=== PATIENT | male | born 1970 | race Hispanic/Latino ===

== ENCOUNTER 2016-11-07 07:35 | Day surgery (SDC) | payer MEDICAID ==
[2016-10-28 09:37] VITALS: BMI 27.9
[2016-11-07] MEDS: Lidocaine 1% Inj (20ml) ONE ×2 (08:05→08:15)
[2016-11-07] MEDS: Bupivacaine-Epi 0.25%-1:200,000 PF Inj ONE ×2 (08:05→08:15)
[2016-11-07] MEDS ORDERED: Lactated Ringer's 1,000 ML IV ONE (08:15)
[2016-11-07] MEDS ORDERED: ceFAZolin IV 1 gm in Dextrose 1 GM/50 ML BAG IVPB ONE (08:21)
[2016-11-07 08:22] VITALS: PULSE 59
[2016-11-07] MEDS ORDERED: Oxycodone/Acetaminophen 5/325 mg Tab PO PRN (09:07)
--- NOTE | 2016-11-07 09:09 | PCM.SURG1 ---
Surgeon's Initial Post Op Note - Surgeon's Notes Surgeon: Dr. Duarte Paper Machine Tender: Dusty Giraldo PGY2 Type of Anesthesia: Local Pre-Operative Diagnosis: L UE sebaceous cyst Operative Findings: Same [id number] Post-Operative Diagnosis: Same Operation Performed: excision of L sebaceous cyst Specimen/Specimens Removed: L UE sebaceous cyst Estimated Blood Loss: EBL {In ML}: 5 Blood Products Given: N/A Drains Used: No Drains Post-Op Condition: Good Date of Surgery/Procedure: 11/07/16 Time of Surgery/Procedure: 09:09
--- NOTE | 2016-11-07 09:13 | CP.SDSHP ---
Same Day Surgery H & P - History Proposed Procedure: Excision of L UE cyst Pre-Op Diagnosis: L UE cyst - Allergies Allergies: Allergies No Known Allergies Allergy (Verified 10/28/16 09:35) - Physical Exam Vital Signs: Vital Signs 11/07/16 07:44 Temperature 97.1 F L Pulse Rate 59 L Respiratory 20 Rate Blood Pressure 168/53 H O2 Sat by Pulse 97 Oximetry Mental Status: Alert & Oriented x3 Neuro: WNL Heart: WNL Lungs: WNL GI: WNL - {Optional Preform as Required} Abdomen: WNL Integument: Other (L UE 3x3cm lump. NT. No eryhtema) Short Stay Discharge - Short Stay Discharge Admitting Diagnosis/Reason for Visit: SEBACEOUS CYST LEFT ARM Disposition: HOME/ ROUTINE Referrals: Pavel Duarte MD [Staff Provider] - Instructions: Dermal Cyst Excision (DC)
[2016-11-07 09:26] VITALS: BP 159/79; RESP 15; TEMP 97; O2SAT 100
--- NOTE | 2016-11-07 11:19 | OP ---
PROCEDURE DATE: 11/07/2016 PREOPERATIVE DIAGNOSIS: Sebaceous cyst of left forearm, approximately 4 x 3 cm size. POSTOPERATIVE DIAGNOSIS: Sebaceous cyst of left forearm, approximately 4 x 3 cm size. PROCEDURE DONE: Excision of sebaceous cyst of the left forearm. SURGEON: Pavel Duarte MD MANAGER NURSING HOME: [facility] resident. TYPE OF ANESTHESIA: Local anesthesia plus monitored anesthesia. ESTIMATED BLOOD LOSS: Around 10 mL DRAINS: None. PATHOLOGY: The sebaceous cyst was sent to the pathology. COMPLICATIONS: None. INTRAOPERATIVE FINDINGS: The patient has approximately 4 x 3 cm sebaceous cyst of the left forearm posteriorly. DESCRIPTION OF PROCEDURE: On intraoperative steps, this is a 46-year-old male who was diagnosed with the sebaceous cyst of the left forearm and the patient was consented about the excision of sebaceous cyst and brought to the OR, placed in supine position and the left forearm was prepped and draped in usual sterile fashion and a transverse 3-cm incision was made. After incising skin and subcutaneous tissue, the upper and lower flap was created. Sebaceous cyst was completely excised and it was sent off the table for the pathology. There was a proper hemostasis in each and every part of the procedure. The wound was closed in two layers subcu with 2-0 Vicryl, skin with 4-0 Monocryl, and dry sterile dressing was applied. The patient tolerated the procedure well. Count of instrument was correct. There was no apparent complications. The patient was sent to the Same-Day Surgery for further care. Pavel Duarte MD
== END 2016-11-07 09:19 | disposition home or self-care (01) ==
LOC: C.SDS 07:35
PROVIDERS: ATTEND Surgery Surgical Critical Care
DX: L72.3 Sebaceous cyst (principal)
CPT/HCPCS: 11404; 82948; 88305; J0690; J7120